=== PATIENT | male | born 1975 | race Caucasian/White ===

== ENCOUNTER → 2018-07-26 | Outpatient (CLI) | payer OTHER ==
[~2018-07-26] MED LIST: LOSA100T14 PO; NIFE60TA16 PO
--- NOTE | 2018-07-27 06:12 | PAIN ---
DATE OF SERVICE: 07/26/2018 INITIAL CONSULTATION FOR PAIN CLINIC CHIEF COMPLAINT: Low back, bilateral lower extremity pain. HISTORY OF PRESENT ILLNESS: This is a 42-year-old male who presents with history of pain in the low back, bilateral lower extremity. 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 The patient reports that the pain has been increasing over the past year or so, has been present for several years. The patient reports it is worse with walking, standing, change in positions, describes the pain as constant, sharp, stabbing and shooting in the lower extremities, mostly in the posterior gluteus, posterior thighs, but across the low back, primarily. He says chief complaint is the pain in the back itself. The patient has had treatment with chiropractic as well as physical therapies as recently as 2018, only with minimal decrease in pain, but did improve to a moderate extent. The patient reports he is taking tramadol as well as Advil neither one which helped significantly. Advil helps at times, but not every time. The patient reports no loss of motor function, significant fatigability of both lower extremities when exercising, walking or running and has become more painful where he is unable to run and exercising in this way because of the pain. The patient rates his disability rate from 0-10, 10 being the worst, 5 with family and home responsibilities, recreation, social activity and occupation, 3 with sexual behavior, self-care and 3 with life support activities. The patient had MRI scan of lumbar spine showing some degenerative change at the L5-S1 level. PAST MEDICAL HISTORY: Significant for hypertension, otherwise the patient has been in very good health. PAST SURGICAL HISTORY: Only surgery is ear tubes when he was younger. CURRENT MEDICATIONS: Include losartan and [id number] Advil and tramadol in the past, not currently taking it. FAMILY HISTORY: Significant for hypertension. SOCIAL HISTORY: The patient drinks about 2 alcoholic drinks on the weekend only. Does not smoke any illegal, illicit or recreational drugs. He is and lives with his spouse, lives locally in [place], [place]. ALLERGIES: The patient has no known drug allergies. REVIEW OF SYSTEMS: The patient's review of systems is positive for those items mentioned in history of present illness. All systems reviewed and otherwise negative. It is complete, full and well documented on the patient's chart. PHYSICAL EXAMINATION: VITAL SIGNS: His blood pressure 174/116, pulse 68, respirations 18, temperature 98.1 degrees Fahrenheit, height is 6 feet, weight is 207 pounds. GENERAL: The patient is awake, alert, oriented, appropriate, very pleasant demeanor. HEENT: Head is normocephalic, atraumatic. Extraocular movements are intact and symmetrical. Oral cavity: Mucous membranes are moist and pink. Dentition is intact. NECK: Shows anterior throat supple without palpable lymphadenopathy noted. Swallow reflex is symmetrical. CHEST: Shows normal on inspection. Breath sounds clear to auscultation bilaterally. HEART: Shows S1, S2 clear. No murmurs auscultated. ABDOMEN: Soft, nontender, nondistended. No palpable organomegaly is noted. No rebound or guarding demonstrated. BACK: Shows spine grossly in the midline. Normal appearing thoracic kyphosis and lumbar lordotic curvature. Lumbar paraspinous muscle shows symmetrical on inspection, with palpation shows some moderate tenderness diffusely throughout the upper, middle and lower distribution of paraspinous muscles, but only diffusely without significant radiation. Lumbar spinal, both laterally as well as extension and flexion without significant difficulty. The patient shows no tenderness over the spinous processes, sacrum or sacroiliac regions. EXTREMITIES: Lower extremities show deep tendon reflexes at 2+ in the patellar, 1+ tendo-calcaneus tendons. Motor exam is strong with 5/5 dorsiflexion, extension, quadriceps and hamstring flexion and symmetrical. Peripheral pulses are 2+ posterior tibia. No peripheral edema is noted. No clubbing or cyanosis. Lower extremities are warm and dry to touch, equal in color and appearance. Straight leg raise noted to be negative bilaterally. Gaenslen's and Reji's maneuvers are negative bilaterally as well. The patient is able to stand, stand on his toes without significant pain or loss of balance, walks with normal appearing gait for short distance in the office without any assistive devices. SKIN: The patient's skin shows warm and dry, good turgor. No edema. No sores, rashes or bruising. IMPRESSION: 1. This is a 42-year-old male with a long history of low back, bilateral lower extremity pain for about 7 years, active duty. 2. Hypertension. 3. MRI scan of lumbar spine as noted. PLAN: Options were discussed with the patient including conservative medical management, physical therapy, interventional techniques. He would like to pursue interventional techniques, we discussed a lumbar epidural steroid injection using description as well as anatomical models to describe the procedure. We will wait for preauthorization with patient's insurance provider and have the patient return for lumbar epidural steroid injection at that time. In the meantime, the patient will continue with exercise as tolerated, stretching and strengthening as well as working out at the gym and everything except for running at this point as it is too painful to do so and will follow up once preauthorization is obtained. We will plan on lumbar epidural steroid injection at that time. RENNY BENNETT MD DR: ANGELIQUE/latasha JOB#: [id number] / [id number]
== END | disposition home or self-care (01) ==
LOC: PNCL 09:07
PROVIDERS: ATTEND Anesthesiology
DX: M54.5 Low back pain (principal); M79.604 Pain in right leg; M79.605 Pain in left leg; I10 Essential (primary) hypertension
CPT/HCPCS: G0463

== ENCOUNTER → 2018-08-02 | Outpatient (CLI) | payer OTHER ==
[~2018-08-02] MED LIST changes: +IOHEXOL 180 MG/ML 10 ML VIAL. ONE; +methylPREDNISolone ACETATE 40 MG/ML VIAL. ONE; +methylPREDNISolone ACETATE 80 MG/ML VIAL. ONE
--- NOTE | 2018-08-02 23:25 | PAIN ---
DATE OF SERVICE: 08/02/2018 PROGRESS NOTE FOR PAIN CLINIC: DIAGNOSES: Lumbar radiculopathy with lumbar degenerative disk disease. HISTORY OF PRESENT ILLNESS: The patient is a 42-year-old male who returns for followup status post initial evaluation and preauthorization for lumbar epidural steroid injection. The patient has obtained this and would like to proceed today, still pain in the low back and right equal to left lower extremity, posterior gluteus, posterior thigh and posterior calf. The patient reports it is aching, sharp type shooting, rates it as an 8 on a scale of 10, 5 on average and is a 2 at its least over the past week and is a 5 today. The patient reports no new motor or sensory deficits, no new bowel or bladder incontinence, still wakes him from sleep about every 6-7 hours. No significant changes in distance walking or doing work activities. He has been sitting at work, mostly lately, which is helpful for his back as well. The patient reports no new motor or sensory deficits, no new bowel or bladder incontinence or other complaints. PHYSICAL EXAMINATION: VITAL SIGNS: The patient's blood pressure is 134/88, pulse 96, respirations 16, temperature 97.9 degrees Fahrenheit, weight is 209 pounds. GENERAL: The patient is awake, alert, oriented, appropriate, very pleasant demeanor. HEENT: Head is normocephalic, atraumatic. Extraocular movements are intact, symmetrical. Oral cavity: Mucous membranes moist and pink. Dentition is intact. NECK: Shows anterior throat supple without palpable lymphadenopathy noted. Swallow reflex symmetrical. CHEST: Shows normal with inspection. Breath sounds clear to auscultation bilaterally. HEART: Shows S1, S2 clear. No murmurs auscultated. ABDOMEN: Soft, nontender, nondistended. No palpable organomegaly is noted. No rebound or guarding demonstrated. BACK: Shows spine grossly in the midline. Normal appearing thoracic kyphosis and lumbar lordotic curvature. Lumbar paraspinous muscle shows symmetrical on inspection and with palpation shows some moderate tenderness, but only diffusely without significant radiation. EXTREMITIES: Lower extremities show deep tendon reflexes at 2+ in the patellar and 1+ in the tendo-calcaneus tendons. Motor exam is strong with 5/5 dorsiflexion, extension, quadriceps and hamstring flexion symmetrical. Peripheral pulses are 1+ in posterior tibial. No peripheral edema is noted bilaterally. Options were discussed with the patient. The patient's old chart was reviewed as his current medication regimen updated. Current review of systems updated today as well. We will proceed with a lumbar epidural steroid injection today with fluoroscopic guidance. Risks were again discussed including, but not limited to bleeding, infection, possibility of epidural hematoma, subsequent neurologic compromise, dural puncture, headaches, spinal cord and/or nerve damage, side effects of steroid medication and poor results regarding pain control. The patient understands and wished to proceed. The patient will return to clinic in approximately 2 weeks for followup, was counseled as to return appointment, activity level and side effects to be aware of. DIAGNOSES: Lumbar radiculopathy with lumbar degenerative disk disease. PROCEDURE: Lumbar epidural steroid injection, translaminar approach L5-S1 level using C-arm fluoroscopic guidance under sterile prep and drape using local anesthetic. MEDICATION INJECTED: A total of 120 mg Depo-Medrol plus 10 mL of preservative-free normal saline and 2 mL of contrast. CONDITION AT DISCHARGE: Stable. The patient tolerated the procedure well, had no complications. RENNY BENNETT MD DR: ANGELIQUE/latasha JOB#: [id number] / [id number]
== END | disposition home or self-care (01) ==
LOC: PNCL 10:51
PROVIDERS: ATTEND Anesthesiology
DX: M51.16 Intervertebral disc disorders with radiculopathy, lumbar region (principal)
CPT/HCPCS: 62323; J1030; J1040; Q9965

== ENCOUNTER → 2018-08-16 | Outpatient (CLI) | payer OTHER ==
--- NOTE | 2018-08-17 09:47 | PAIN ---
DATE OF SERVICE: 08/16/2018 DIAGNOSES: Lumbar radiculopathy with lumbar degenerative disk disease. HISTORY OF PRESENT ILLNESS: The patient is a 42-year-old male who returns for followup status post lumbar epidural steroid injection x 1. The patient reports about 100% improvement for the first 3 days and pain is still about 50% improved overall, but still in the low back, more on the right side than the left at this time. The patient reports it is a stabbing pain, aching, tight, shooting sometimes into the right lower extremity as it was previously in both extremities, a little more localized to the right at this time. The patient reports it is an 8 on a scale of 10 over the past week at its worst, is a 5 on average and 1 at its least and is a 1 today. The patient reports it is aching and tight, stabbing, sometimes shooting, but mainly just in the back at this time. The patient reports initially he was increasing his activity, walking, doing great distances, work activities, household activities, bending over much easier. The patient reports still is not awakening him from sleep. He is most comfortable with lying down or sleeping. The patient reports no new motor or sensory deficits. No new bowel or bladder incontinence or other complaints. PHYSICAL EXAMINATION: VITAL SIGNS: The patient's blood pressure 130/86, pulse 88, respirations 16, temperature 98.0 degrees Fahrenheit. Weight is 208 pounds. GENERAL: The patient is awake, alert, oriented, appropriate, very pleasant demeanor. HEENT: Shows normocephalic, atraumatic. Extraocular movements are intact and symmetrical. Oral cavity: Mucous membranes moist and pink. Dentition is intact. NECK: Shows anterior throat supple without palpable lymphadenopathy noted. Swallow reflex is symmetrical. CHEST: Shows normal on inspection. Breath sounds clear to auscultation bilaterally. HEART: Shows S1, S2 clear. No murmurs auscultated. ABDOMEN: Soft, nontender, nondistended. No palpable organomegaly is noted. No rebound or guarding demonstrated. BACK: Shows spine grossly in the midline, normal appearing thoracic kyphosis and lumbar lordotic curvature. Lumbar paraspinous muscle shows symmetrical on inspection. On palpation shows some moderate tenderness diffusely, but only diffusely without specific radiation. No trigger points. The patient has good rotational motion of lumbar spine, both laterally as well as extension and flexion without difficulty. EXTREMITIES: Lower extremities show deep tendon reflexes at 2+ in the patellar, 1+ tendo calcaneus tendons. Motor exam is strong with 5/5 dorsiflexion, extension, quadriceps and hamstring flexion and equal. Peripheral pulses are 1+ posterior tibial. No peripheral edema is noted bilaterally. Options were discussed with the patient. The patient's old chart was reviewed as was his current medication regimen updated. Current review of systems is updated today as well and we will proceed with a second in the series of lumbar epidural steroid injection today with fluoroscopic guidance. Risks were discussed including, but not limited to bleeding, infection, possibility of epidural hematoma, subsequent neurological compromise, dural puncture, headaches, spinal cord and/or nerve damage, side effects of steroid medication and poor results regarding pain control. The patient understands and wished to proceed. The patient will return to the clinic in approximately 2 weeks for followup, was counseled on return appointment, activity level and side effects to be aware of. DIAGNOSIS: Lumbar radiculopathy with lumbar degenerative disk disease. PROCEDURE: Lumbar epidural steroid injection, translaminar approach at L5-S1 level using C-arm fluoroscopic guidance under sterile prep and using local anesthetic. MEDICATION INJECTED: A total of 120 mg Depo-Medrol plus 10 mL of preservative-free normal saline and 2 mL of contrast. CONDITION AT DISCHARGE: Stable. The patient tolerated the procedure well, had no complications. RENNY BENNETT MD DR: ANGELIQUE/latasha JOB#: [id number] / [id number]
== END | disposition home or self-care (01) ==
LOC: PNCL 09:34
PROVIDERS: ATTEND Anesthesiology
DX: M51.16 Intervertebral disc disorders with radiculopathy, lumbar region (principal)
CPT/HCPCS: 62323; J1030; J1040; Q9965